=== PATIENT | female | born 1990 | race Caucasian/White ===

== ENCOUNTER 2019-08-24 19:22 | Emergency (ER) | payer SELFPAY ==
[~2019-08-24] VITALS: Ht 162.6 cm; Wt 65.4 kg
[~2019-08-24 19:22] MED LIST: ACET325T33 PO
[2019-08-24 19:26] VITALS: Ht 162.6 cm; Wt 65.4 kg
[2019-08-24] MEDS ORDERED: ACETAMINOPHEN 500 MG TAB PO STA (22:22)
[2019-08-25 00:15] VITALS: BP 137/65; PULSE 79; RESP 17
== END 2019-08-25 00:17 | disposition home or self-care (01) ==
LOC: E/R 19:22
DX: S09.90XA Unspecified injury of head, initial encounter (principal); Y04.8XXA Assault by other bodily force, initial encounter
CPT/HCPCS: 99283